=== PATIENT | male | born 1980 | race Caucasian/White ===

== ENCOUNTER 2023-05-23 16:23 | Emergency (ER) | payer OTHER ==
[2023-05-23 16:53] VITALS: RESP 18
[2023-05-23] MEDS ORDERED: HYDROmorphone 1 MG/ML 1 ML SYRINGE IM STA (17:12)
[2023-05-23] MEDS ORDERED: diazePAM 2 MG TAB PO STA (17:12)
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
[2023-05-23] MEDS ORDERED: KETOROLAC 15 MG/ML 1 ML VIAL IM STA (17:50)
[2023-05-23] MEDS ORDERED: CYCLOBENZAPRINE 10 MG TAB PO STA (17:50)
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
[2023-05-23 19:08] VITALS: BP 110/62; PULSE 82; TEMP 97.9
== END 2023-05-23 19:05 | disposition home or self-care (01) ==
LOC: EC 16:23
DX: S13.9XXA Sprain of joints and ligaments of unspecified parts of neck, initial encounter (principal); M50.321 Other cervical disc degeneration at C4-C5 level; F17.200 Nicotine dependence, unspecified, uncomplicated; F12.90 Cannabis use, unspecified, uncomplicated; Z88.0 Allergy status to penicillin; Y92.410 Unspecified street and highway as the place of occurrence of the external cause
CPT/HCPCS: 72125; 70450; 99284; 96372; J1885